=== PATIENT | male | born 1980 | race Caucasian/White ===

== ENCOUNTER 2022-09-21 10:20 | Emergency (ER) | payer OTHER, SELFPAY ==
--- NOTE | ~2022-09-21 | XR_ITS ---
EXAMINATION: XR chest 2V DATE: 09/21/2022 11:14 INDICATION: Chest pain. Nausea. Dizziness. TECHNIQUE: Frontal and lateral views of the chest were obtained. COMPARISON: None. FINDINGS: The chest demonstrates clear lungs without pneumonia, pleural effusion, or pneumothorax. Th e heart size is normal. There is mild chronic anterior wedging of multiple vertebral bodies. IMPRESSION: 1. No acute cardiopulmonary disease. Reviewed, dictated and finalized at location A.
--- NOTE | 2022-09-21 10:21 | ECG_ITS ---
Measurements Intervals Gail Rate: 58 P: 41 FL: 139 QRS: 19 QRSD: 101 T: 19 QT: 405 QTc: 401 Interpretive Statements SINUS BRADYCARDIA WITH SHORT FL INTERVAL POSSIBLE LEFT ATRIAL ENLARGEMENT [-0.1mV P WAVE IN V1/V2] POSSIBLE LEFT VENTRICULAR HYPERTROPHY [VOLTAGE CRITERIA PLUS LAE OR QRS WIDENING] NONSPECIFIC T-WAVE ABNORMALITY NO PREVIOUS ECG AVAILABLE FOR COMPARISON Electronically Signed On 09-21-2022 13:54:58 CDT by Aarti Low M.D.
[2022-09-21 10:43] VITALS: BP 150/93; PULSE 65; RESP 14; TEMP 36.5; O2SAT 99
--- NOTE | 2022-09-21 10:47 | ED.GENADULT ---
HPI - General Adult General Chief complaint: Unspecified Stated complaint: feeling flushed, shaking, burning in chest Time Seen by Provider: 09/21/22 10:33 History of Present Illness HPI narrative: Pt was at work and felt a little lightheaded and fuzzy and had some burning in his left chest. Pt said it lasted about 30 seconds and resolved and then happened again and resolved. Pt has GERD but this feels different. Pt had recent URI but has improved. Pt has no history of similar symptoms. Pt feels fine now. Related Data Allergies Allergy/AdvReac Type Severity Reaction Status Date / Time No Known Allergies Allergy Verified 09/21/22 10:50 Review of Systems Review of Systems: All systems reviewed & are unremarkable except as noted in HPI and below Exam Const: General: alert and average body habitus Nutritional Appearance: average body habitus Orientation/consciousness: patient oriented x3 Limitations: no limitations HENMT: Head: normal to inspection Eyes: Conjunctivae: conjunctivae normal Sclera: sclerae normal Neck: Neck: normal visual inspection, full ROM and no lymphadenopathy Resp: Effort & Inspection: normal respiratory effort Auscultation: clear to auscultation bilaterally Cardio: Rate: regular rate Rhythm: regular rhythm GI: GI Palp: No abdominal tenderness Auscultation: normal bowel sounds Neuro: General: patient oriented x3, moves all extremities, no meningeal signs and no focal motor deficits Extrem: General: normal to inspection, full ROM and no clubbing, cyanosis or edema Psych: Appearance: grossly normal Speech and movement: Normal speech and movement present Affect: Anxious affect present Attitude: cooperative Thought process: Normal thought process present Thought content: Yes Normal thought content present Insight: Good insight present (Psych) Judgement: Good judgement present (Psych) Course Course Emergency Course: H 0 E 0 A 0 R 0 T 0 = 0 Vital Signs Vital signs: Vital Signs Temperature 97.7 F 09/21/22 10:43 Pulse Rate 65 09/21/22 10:43 Respiratory Rate 14 09/21/22 10:43 Blood Pressure 150/93 H 09/21/22 10:43 Pulse Oximetry 99 09/21/22 10:43 Oxygen Delivery Room Air 09/21/22 10:43 Temperature 97.7 F 09/21/22 10:43 Pulse Rate 72 09/21/22 12:21 Respiratory Rate 16 09/21/22 12:21 Blood Pressure 147/91 H 09/21/22 12:21 Pulse Oximetry 95 09/21/22 12:21 Oxygen Delivery Room Air 09/21/22 10:43 Medical Decision Making MDM Narrative Medical decision making narrative: pt presents with chest burning and lightheaded and fuzzy feeling today at work. will check ekg, labs and CXR, seems unlikely to be life threatening at this point but will rule out. labs and ekg al wnl pt ok to discharge Vital Signs Vital Signs: Vital Signs Temperature 97.7 F 09/21/22 10:43 Pulse Rate 65 09/21/22 10:43 Respiratory Rate 14 09/21/22 10:43 Blood Pressure 150/93 H 09/21/22 10:43 Pulse Oximetry 99 09/21/22 10:43 Oxygen Delivery Room Air 09/21/22 10:43 Temperature 97.7 F 09/21/22 10:43 Pulse Rate 72 09/21/22 12:21 Respiratory Rate 16 09/21/22 12:21 Blood Pressure 147/91 H 09/21/22 12:21 Pulse Oximetry 95 09/21/22 12:21 Oxygen Delivery Room Air 09/21/22 10:43 Lab Data Lab results reviewed: Yes I reviewed the patient's lab results. 09/21/22 11:01 09/21/22 11:01 Labs: Lab Results 09/21/22 Range/Units 11:01 WBC 5.1 (4.5-10.0) K/mm3 RBC 4.93 (4.6-6.20) M/mm3 Hgb 15.4 (14.0-18.0) g/dL Hct 44.1 (42.0-52.0) % MCV 89.5 (80-100) fl MCH 31.2 (26-34) pg MCHC 34.9 (32-36) g/dl RDW 12.3 (11.5-14.5) % Plt Count 257 (150-375) k/mm3 MPV 9.8 (7.4-10.4) fl Immature Gran % (Auto) 0.8 H (0-0.5) % Neut % (Auto) 58.6 (45.5-73.1) % Lymph % (Auto) 29.7 (18.3-44.2) % [place] % (Auto) 7.9 (2.6-8.5) % Eos % (Auto) 2.2 (0-4.4) % Baso % (Auto) 0.8 (0.2
[2022-09-21 11:04] VITALS: PULSE 61
[2022-09-21 11:08] LABS: Basophils Percent Auto 0.8 % (0.2-1.2); Eosinophils Absolute Auto 0.1 K/mm3 (0-0.3); Eosinophils Percent Auto 2.2 % (0-4.4); Hematocrit 44.1 % (42.0-52.0); Hemoglobin 15.4 g/dL (14.0-18.0); Immature Granulocyte Absolute 0.04 K/mm3 (0.00-0.031); Immature Granulocyte Percent A 0.8 % (0-0.5); Lymphocytes Percent Auto 29.7 % (18.3-44.2); Mean Corpuscular HGB Conc 34.9 g/dl (32-36); Mean Corpuscular Hemoglobin 31.2 pg (26-34); Mean Corpuscular Volume 89.5 fl (80-100); Mean Platelet Volume 9.8 fl (7.4-10.4); Monocytes Absolute Auto 0.4 K/mm3 (0.1-0.6); Monocytes Percent Auto 7.9 % (2.6-8.5); Neutrophils Percent Auto 58.6 % (45.5-73.1); Platelet Count Result 257 k/mm3 (150-375); Red Blood Count 4.93 M/mm3 (4.6-6.20); Red Cell Distribution Width 12.3 % (11.5-14.5); White Blood Count 5.1 K/mm3 (4.5-10.0)
[2022-09-21 11:17] LABS: Alanine Aminotransferase 49 U/L (6-50); Albumin Level 4.5 g/dL (3.5-5.1); Alkaline Phosphatase 50 U/L (38-126); Anion Gap 5 mmol/L (8-16); Aspartate Amino Transferase 30 U/L (17-59); Bilirubin,Total 0.6 mg/dL (0.2-1.3); Blood Urea Nitrogen 11 mg/dL (9-20); Calcium 8.9 mg/dL (8.4-10.2); Carbon Dioxide 28 mmol/L (22-30); Chloride 97 mmol/L (98-107); Estimated CRCL calculation 90 ml/min; Estimated Glomerular Filt Rate > 60; Glucose 98 mg/dL (65-110); Potassium 3.7 mmol/L (3.4-5.0); Sodium 130 mmol/L (137-145)
[2022-09-21 11:22] LABS: INR 0.9; Prothrombin Time 12.7 Seconds (11.1-14.7)
[2022-09-21 11:23] LABS: Partial Thromboplastin Time 30.7 SECONDS (22.3-36.8)
[2022-09-21 11:29] LABS: NT Pro B Type Natriuretic Pept < 20 pg/mL (19.9-100); Troponin I < 0.012 ng/mL (0.000-0.034)
[2022-09-21 11:52] VITALS: BP 143/84; PULSE 70; RESP 16; O2SAT 99
[2022-09-21 12:21] VITALS: BP 147/91; PULSE 72; RESP 16; O2SAT 95
== END 2022-09-21 12:23 | disposition home or self-care (01) ==
PROVIDERS: Emergency Provider Emergency Medicine
DX: R07.89 Other chest pain (principal)
CPT/HCPCS: 36415; 71046; 80053; 83880; 84484; 85025; 85610; 85730; 93005; 99284

== ENCOUNTER 2024-10-17 14:30 | Outpatient (CLI) | payer OTHER, SELFPAY ==
--- NOTE | ~2024-10-17 | MR_ITS ---
EXAMINATION: MR pelvis wo con DATE: 10/17/2024 15:13 INDICATION: Painful ejaculation TECHNIQUE: Magnetic resonance imaging (MRI) of the pelvis was performed without intravenous contrast. Full field sequences of the pelvis included axial and coronal T2-weighted SS FSE, coronal 2D FIESTA, axial T1-weighted FSPGR, axial dual-echo T1-weighted FSPGR and axial T1 weighted LAVA. Small field of view sequences included axial, sagittal and coronal T2-weighted FSE centered on the prostate. COMPARISON: None. FINDINGS: Bladder is normal. Prostatomegaly measuring 4.4 x 3.7 x 3.4 cm. The seminal vesicles are normal and symmetric. No inguinal hernias. Small bilateral hydroceles. Bilateral testes and epididymides are symmetric and normal in appearance. Visualized portions of bowels including the appendix are normal. No free fluid in the pelvis. No pathologically enlarged pelvic or inguinal lymphadenopathy. Bones are unremarkable with normal marrow signal throughout. IMPRESSION: 1. Prostatomegaly. 2. Small bilateral hydroceles with normal and symmetric bilateral testes and epididymides. Reviewed, dictated and finalized at location A. IMPRESSION: 1. Prostatomegaly. 2. Small bilateral hydroceles with normal and symmetric bilateral testes and ep ididymides.
== END 2024-10-17 14:31 | disposition home or self-care (01) ==
LOC: MICIMG 14:31
PROVIDERS: Visit Provider Urology
DX: N40.0 Benign prostatic hyperplasia without lower urinary tract symptoms (principal); N43.2 Other hydrocele; N53.12 Painful ejaculation
CPT/HCPCS: 72195